=== PATIENT | female | born 1975 | race Caucasian/White ===

== ENCOUNTER 2016-08-12 18:58 | Emergency (ER) | payer OTHER ==
[~2016-08-12] VITALS: Ht 157.5 cm; Wt 76.4 kg
[~2016-08-12 18:58] MED LIST: PENI500T PO; TRAM50 PO; XANA0.5T PO
[2016-08-12 19:17] VITALS: BP 138/97; PULSE 77; RESP 20; TEMP 98.1; O2SAT 97
[2016-08-12] MEDS ORDERED: XANA1TAB PO (19:36)
--- NOTE | 2016-08-12 19:52 | PD ---
HPI Chief Complaint: Oral / Dental Pain or Problem Time Seen by Provider: 19:47 Travel History International Travel<30 days: No Contact w/Intl Traveler<30days: No Traveled to known affect area: No History of Present Illness HPI Patient comes in complaining of pain and possible infection from her bilateral upper gum status post dental extraction 2 days ago. Patient states that she is not placed on antibiotics and she still had clindamycin home however she's been taking this she continues to have pain bilateral upper molars that were recently extracted and has pus drain from them from time to time. Patient reports she ran out of clindamycin yesterday. Patient states of pus forms as long string-like things that she pops causing them to squirt across her mouth. Patient states eating certain food seems to trigger this. Denies anything making it better. Patient states she was prescribed hydrocodone after the procedure and ran out of those yesterday as well. PFSH Past Medical History Arthritis: Yes Anxiety: Yes Diminished Hearing: No Tetanus Vaccination: < 5 Years Influenza Vaccination: No ?: Not LMP: 07/29/16 : 2 Para: 2 Tubal Ligation: Yes Past Surgical History Other Surgery: Yes (BREAST AUGMENTATION) Social History Alcohol Use: No Tobacco Use: Yes (1/2 ppd) Substance Use: No Allergies-Medications (Allergen,Severity, Reaction): Coded Allergies: No Known Allergies (Verified , 12/14/15) Reported Meds & Prescriptions Reported Meds & Active Scripts Active Clindamycin (Clindamycin HCl) 300 Mg Cap 300 Mg PO Q6H [address] (Diclofenac Sodium) 75 Mg Tabdr 75 Mg PO Q12HR PRN Reported Xanax Xr 24 HR (Alprazolam) 1 Mg Tab 1 Mg PO DAILY Take tablet intact, preferably in the morning. Review of Systems Except as stated in HPI: all other systems reviewed are Neg Physical Exam Narrative GENERAL: Well-developed, overly nourished, in no acute distress, and non-ill appearing. SKIN: Warm and dry. HEAD: Atraumatic. Normocephalic. EYES: Pupils equal and round. EOMI. No scleral icterus. No injection or drainage. ENT: No nasal bleeding or discharge. Mucous membranes pink and moist. Poor dentition with no visible or palpable abscess. Floor the mouth, submandibular, submental are all soft to palpation. NECK: Trachea midline. No cervical lymphadenopathy. Supple. No nuclear rigidity. RESPIRATORY: No accessory muscle use. No respiratory distress. MUSCULOSKELETAL: No obvious deformities. No clubbing. No cyanosis. No edema. Full range of motion. NEUROLOGICAL: Awake and alert. No obvious cranial nerve deficits. Motor grossly within normal limits. Normal speech. PSYCHIATRIC: Appropriate mood and affect; insight and judgment normal. Data Data Last Documented VS Vital Signs Date Time Temp Pulse Resp B/P Pulse Ox O2 Delivery O2 Flow Rate FiO2 08/12/16 19:32 77 16 08/12/16 19:17 98.1 138/97 97 MDM Medical Decision Making Medical Screen Exam Complete: Yes Emergency Medical Condition: Yes Differential Diagnosis Dental abscess, dental infection, dentalgia, other Narrative Course The patient presented with dental pain. There is no fever. There is no significant facial swelling or evidence of cellulitis. There is poor dentition but no evidence of drainable abscess at this time. There is no evidence of significant deep or invading abscess at this time. The patient will be placed on antibiotics and pain medication. The patient was instructed to follow up with her oral surgeon. Warnings were discussed with the patient regarding worsening of infection. The patient is to return if pain worsens, develops progressive swelling or facial redness or fever. The patient agrees with plan. Patient in no obvious distress upon re-evaluation. Patient was asked if they wanted to speak to my attending, which the patient did not wish to do at this time. Discussed patient with Dr. Menard prior to discharge, who is in agreement with plan of care and disposition. Any questions/concerns in reference to patient diagnosis/condition discussed and clarified prior to patient's discharge. Reinforced sheer importance of close follow up with patient 's primary physician or primary care clinic. Instructed patient to return to ED immediately, if symptoms return/worsen. Pt showed understanding of above instructions. Further instructions and recommendations were detailed in discharge paperwork. Pt ambulated without difficulty out of ED at discharge. Diagnosis Primary Impression: Dentalgia Patient Instructions: Dental Abscess (GEN), Dental Caries (DC), General Instructions Additional Instructions: Follow-up with your primary care physician and oral surgeon tomorrow. Rinse mouth with warm salt water gargles. Take all medication as prescribed. Take probiotics [id number] to help prevent diarrhea. Return to the emergency department if symptoms get worse. Med/Other Pt SpecificInfo: Prescription(s) given Scripts Clindamycin 300 Mg [id number] Mg PO Q6H 5 Days Ref 0 Prov:Meliza Menard MD 08/12/[address] 75 Mg Tabdr75 Mg PO Q12HR PRN (PAIN SCALE 1 TO 10) #12 TAB Ref 0 Prov:Meliza Menard MD 08/12/16 Disposition: 01 DISCHARGE HOME Condition: Stable Dave Kunz Aug 12, 2016 19:52
[2016-08-12] MEDS ORDERED: DICL75TA PO (20:01)
[2016-08-12] MEDS ORDERED: CLIN1CAP6 PO (20:04)
== END 2016-08-12 20:10 | disposition home or self-care (01) ==
LOC: PHEFT 18:58
DX: K08.89 Other specified disorders of teeth and supporting structures (principal); M19.90 Unspecified osteoarthritis, unspecified site; F41.9 Anxiety disorder, unspecified; F17.210 Nicotine dependence, cigarettes, uncomplicated
CPT/HCPCS: 99282

== ENCOUNTER 2017-07-25 15:45 | Emergency (ER) | payer OTHER ==
[~2017-07-25] VITALS: Ht 157.5 cm; Wt 83.4 kg
[~2017-07-25 15:45] MED LIST changes: +CLIN300C5 PO; +DICL75TA PO; -PENI500T PO; -TRAM50 PO; -XANA0.5T PO; +XANA1TAB PO
[2017-07-25 16:08] VITALS: BP 134/81; PULSE 71; RESP 16; TEMP 98.4; O2SAT 99
[2017-07-25] MEDS ORDERED: PENI500T PO (17:06)
[2017-07-25] MEDS ORDERED: IBUP1TAB7 PO (17:06)
[2017-07-25] MEDS ORDERED: MAGICADU2 SWISH-SPIT (17:06)
--- NOTE | 2017-07-25 17:08 | PD ---
HPI Chief Complaint: Oral / Dental Pain or Problem Time Seen by Provider: 17:02 Travel History International Travel<30 days: No Contact w/Intl Traveler<30days: No Traveled to known affect area: No History of Present Illness HPI 42-year-old female presents for evaluation of dental pain. Symptoms started last night. She reports a pulsing pain in her right mandibular first premolar which is constant, worse when changing. She has had similar versus with her teeth in the past. Denies fevers or chills. No other complaints at this time. PFSH Past Medical History Arthritis: Yes Anxiety: Yes Diminished Hearing: No Tetanus Vaccination: < 5 Years ?: Not : 2 Para: 2 Tubal Ligation: Yes Past Surgical History Other Surgery: Yes (BREAST AUGMENTATION) Social History Alcohol Use: No Tobacco Use: Yes (06/28 ppd) Substance Use: No Allergies-Medications (Allergen,Severity, Reaction): Coded Allergies: No Known Allergies (Verified Adverse Reaction, Unknown, 07/25/17) Reported Meds & Prescriptions Reported Meds & Active Scripts Active Ibuprofen 800 Mg Tab 800 Mg PO Q6HR PRN Magic Mouthwash Adult Liq (Multi-Ingredient Mouthwash/Gargle) 120 Ml Susp 10 Ml SWISH-SPIT ACHS Each 5mL contains: Nystatin 200,000units, Diphenhydramine 4.25mg, Viscous Lidocaine 10mg, Adames syrup 0.8 mL Penicillin V Potassium 500 Mg Tab 500 Mg PO Q8H 7 Days Reported Xanax Xr 24 HR (Alprazolam) 1 Mg Tab 1 Mg PO DAILY Take tablet intact, preferably in the morning. Review of Systems General / Constitutional: No: Fever, Chills HENT: Positive: Dental Difficulties Physical Exam Narrative GENERAL: Well-developed well-nourished female in no acute distress SKIN: Warm and dry. HEAD: Atraumatic. Normocephalic. EYES: Pupils equal and round. No scleral icterus. No injection or drainage. ENT: No nasal bleeding or discharge. Mucous membranes pink and moist. Right first mandibular premolar is decayed and tender to palpation. No submental edema, no trismus, no facial edema. NECK: Trachea midline. No JVD. No lymphadenopathy or submandibular edema CARDIOVASCULAR: Regular rate and rhythm. No murmur appreciated. RESPIRATORY: No accessory muscle use. Clear to auscultation. Breath sounds equal bilaterally. Data Data Last Documented VS Vital Signs Date Time Temp Pulse Resp B/P (MAP) Pulse Ox O2 Delivery O2 Flow Rate FiO2 07/25/17 16:08 98.4 71 16 134/81 (98) 99 MDM Medical Decision Making Medical Screen Exam Complete: Yes Emergency Medical Condition: Yes Medical Record Reviewed: Yes Differential Diagnosis Dental caries, pulpitis, pericoronitis, periodontal abscess Narrative Course The patient has dental caries. She is being discharged with a short course of penicillin and nonnarcotic analgesics. Diagnosis Primary Impression: Dental caries Additional Instructions: Medication as prescribed. Follow up with a dentist for definitive therapy. Return for any emergent medical conditions. Med/Other Pt SpecificInfo: Prescription(s) given Scripts Ibuprofen (Ibuprofen) 800 Mg Tab 800 MG PO Q6HR Y for PAIN, #40 TAB 0 Refills Prov: Steph Nina MD 07/25/17 Hzcxronc-Nyjiwjhkffhkhkp-Bsbrrdetr Liq (Magic Mouthwash Adult Liq) 120 Ml Susp 10 ML SWISH-SPIT ACHS for Mouth sores, #120 ML 1 Refill Each 5mL contains: Nystatin 200,000units, Diphenhydramine 4.25mg, Viscous Lidocaine 10mg, Adames syrup 0.8 mL Prov: Steph Nina MD 07/25/17 Penicillin V Potassium (Penicillin V Potassium) 500 Mg Tab 500 MG PO Q8H for Infection for 7 Days, #21 TAB 0 Refills Prov: Steph Nina MD 07/25/17 Disposition: 01 DISCHARGE HOME Condition: Stable Lambert Dennis Jul 25, 2017 17:08
== END 2017-07-25 17:29 | disposition home or self-care (01) ==
LOC: PHEFT 15:45
DX: K02.9 Dental caries, unspecified (principal); F41.9 Anxiety disorder, unspecified; M19.90 Unspecified osteoarthritis, unspecified site; F17.210 Nicotine dependence, cigarettes, uncomplicated
CPT/HCPCS: 99284